=== PATIENT | female | born 1960 ===

== ENCOUNTER → 2016-05-19 | Outpatient (CLI) | payer OTHER ==
--- NOTE | 2016-05-19 10:13 | RAD ---
DATE: 05/19/2016 EXAM: DIGITAL SCREEN BILAT W/CAD HISTORY: Routine screening COMPARISON: 05/19/2015 This study was interpreted with the benefit of Computerized Aided Detection (CAD). FINDINGS: There are scattered fibroglandular densities in the breasts. No new or enlarging breast densities are seen. No suspicious microcalcifications are evident. IMPRESSION: Stable mammograms without evidence of malignancy. BI-RADS CATEGORY: 2 BENIGN FINDING(S) RECOMMENDED FOLLOW-UP: 12M 12 MONTH FOLLOW-UP PQRS compliance statement: Patient information was entered into a reminder system with a target due date for the next mammogram. Mammography is a sensitive method for finding small breast cancers, but it does not detect them all and is not a substitute for careful clinical examination. A negative mammogram does not negate a clinically suspicious finding and should not result in delay in biopsying a clinically suspicious abnormality. "Our facility is accredited by the [employer] Mammography Program."
== END | disposition home or self-care (01) ==
LOC: MAMMO 08:07
PROVIDERS: ATTEND Family Medicine
DX: Z12.31 Encounter for screening mammogram for malignant neoplasm of breast (principal)
CPT/HCPCS: G0202; 77067

== ENCOUNTER → 2019-07-09 | Outpatient (CLI) | payer BC ==
--- NOTE | 2019-07-09 12:08 | RAD ---
EXAMINATION: Ultrasound-guided fine-needle aspiration of left thyroid nodule, 07/07/2019 10:00 AM CLINICAL INDICATION: Left thyroid nodule COMPARISON: Thyroid ultrasound 06/11/2019 FINDINGS/TECHNIQUE: The purpose of the procedure, and risks and benefits were explained to the patient. Informed consent was obtained. A timeout was performed. Initial ultrasound images identified the left thyroid nodule. The skin overlying the patient's left neck was marked, prepped, and draped in standard sterile fashion. Skin and subcutaneous soft tissue were anesthetized with 1% lidocaine. Next, using continuous ultrasound guidance, four 25-gauge fine-needle aspiration samples were obtained and given to the laborer road. The skin was cleansed and covered with a dressing. The patient tolerated the procedure well and left in stable condition. IMPRESSION: Technically successful, ultrasound-guided fine needle aspiration of left thyroid nodule. Electronically signed by: Meghan Altman MD (07/09/2019 12:05 PM) [id number]
--- NOTE | 2019-07-10 13:07 | PATHOLOGY ---
Note [facility] Accession Number: [id number] TESTS RESULT FLAG UNITS REF RANGE LAB Clinician Provided Cytology Information No. of containers..01 Other (Miscellaneous) Source: LEFT THYROID DIAGNOSIS: LEFT THYROID INADEQUATE, INSUFFICIENT CELLS FOR STUDY. [place] CATEGORY I. NONDIAGNOSTIC: VIRTUALLY ACELLULAR SPECIMEN. COLLOID IS PRESENT. THIS INTERPRETATION INCLUDES EVALUATION OF A CELL BLOCK. COMMENT, FEWER THAN 6 GROUPS OF THYROID FOLLICULAR CELLS ARE PRESENT. THE MATERIAL ASPIRATED MAY NOT BE OVEN LABORER. SUGGEST RADIOLOGICAL AND CLINICAL CORRELATION. Signed out by: 02 Bhupinder Livingston MD, Pathologist NPI- [id number] Performed by: Ava Madera, Counter Supply Worker ([facility]) Gross description: 01 30ML, LIGHT PINK, 2F,2AD,2HE /LCS 07/09/2019 1721 Local FLAG LEGEND: L-Low Normal,H-High Normal,LL-Alert Low,HH-Alert High <-Panic Low,>-Panic High,A-Abnormal,AA-Critical Abnormal Performed at: [facility] [address] [place] [address] Fernando Ren MD, [address] [facility] [address] [place] [address] Mina Hernandez MD, Specimen Comment: A courtesy copy of this report has been sent to [phone], [phone] Specimen Comment: [id number], Specimen Comment: Report sent to ,DR NORRIS / DR CUNNINGHAM Specimen Comment: A duplicate report has been generated due to demographic updates. Performed at: [address] [facility], [place] [id number] MD Fernando Ren MD Phone: [phone]
== END | disposition home or self-care (01) ==
LOC: US 09:31
PROVIDERS: ATTEND Surgery
DX: E04.2 Nontoxic multinodular goiter (principal); I10 Essential (primary) hypertension
CPT/HCPCS: 10005; 60300; 76942; 88173; 88305